=== PATIENT | female | born 1970 | race Caucasian/White ===

== ENCOUNTER 2018-07-14 13:07 | Emergency (ER) | payer BC ==
[~2018-07-14] VITALS: Ht 160 cm; Wt 77.1 kg
[2018-07-14 13:16] VITALS: BP_SYST 129
--- NOTE | 2018-07-14 13:23 | NUR ---
Patient to ER bed 8 to gown for evaluation. Side rails up. Report given to Dorothy FLANNERY.
--- NOTE | 2018-07-14 13:35 | NUR ---
Pt brought by self , A&Ox4, pt presents to ER with L lower abdominal pain and nausea, respirations even and unlabored , skin pink and warm, cap refill <3, will continue to monitor.
--- NOTE | 2018-07-14 13:44 | NUR ---
Dr Lujan at bedside examining patient
[2018-07-14] MEDS ORDERED: KETOROLAC TROMETHAMINE 30 MG VIAL IVP ONE (13:45)
[2018-07-14] MEDS ORDERED: NACL 0.9% 1,000 ML IV ONE (13:45)
[2018-07-14 14:07] LABS: BASOPHILS # (AUTO) 0.1 K/uL (0.0-0.2); BASOPHILS % (AUTO) 0.6 % (0.0-2.0); EOSINOPHILS # (AUTO) 0.3 K/uL (0.0-0.4); HEMATOCRIT 29.8 % (36-48); HEMOGLOBIN 9.4 g/dL (12.0-16.0); LYMPHOCYTES # (AUTO) 2.3 K/uL (1.0-5.5); LYMPHOCYTES % (AUTO) 16.7 % (20.5-51.5); MEAN CORPUSCULAR HEMOGLOBIN 24 pg (27-31); MEAN CORPUSCULAR HGB CONC 31 % (32-36); MEAN CORPUSCULAR VOLUME 76 fL (79.0-98.0); MONOCYTES # (AUTO) 0.8 K/uL (0.0-1.0); MONOCYTES % (AUTO) 6.1 % (1.7-9.3); NEUTROPHILS # (AUTO) 10.3 K/uL (1.8-7.7); NEUTROPHILS % (AUTO) 74.6 % (40.0-70.0); PLATELET COUNT (AUTO) 378 K/uL (130-430); RED BLOOD CELL COUNT(AUTO) 3.91 MIL/uL (4.2-6.2); RED CELL DISTRIBUTION WIDTH 19.2 % (9.0-15.0); WHITE BLOOD COUNT (AUTO) 13.8 K/uL (4.8-10.8)
--- NOTE | 2018-07-14 14:30 | NUR ---
Pt on stable condition , respirations even and unlabored.
[2018-07-14 14:40] LABS: CALCIUM 8.3 mg/dL (8.4-11.0); CREATININE 0.74 mg/dL (0.55-1.30); POTASSIUM 3.8 mmol/L (3.5-5.1)
[2018-07-14 14:51] LABS: TOTAL BILIRUBIN 0.4 mg/dL (0.0-1.0)
[2018-07-14 15:22] VITALS: BP_SYST 128
--- NOTE | 2018-07-14 15:23 | NUR ---
Patient given written and verbal discharge instructions and verbalizes understanding. ER MD discussed with patient the results and treatment provided. Patient in stable condition. ID arm band removed. IV catheter removed intact and dressing applied, no active bleeding. No Rx given. Patient educated on pain management and to follow up with PMD. Pain Scale 0/10 . Opportunity for questions provided and answered. Medication side effect fact sheet provided.
== END 2018-07-14 15:23 | disposition home or self-care (01) ==
LOC: SED 13:07
DX: R10.32 Left lower quadrant pain (principal)
CPT/HCPCS: 36415; 74176; 80053; 83690; 85025; 96374; 99284; J1885; J7030